=== PATIENT | female | born 1980 | race African-American/Black ===

== ENCOUNTER 2022-06-10 16:53 | Emergency (ER) | payer OTHER ==
[2022-06-10] MEDS ORDERED: Dexamethasone 10 MG/ML VIAL ONE (18:14)
== END 2022-06-10 18:25 | disposition home or self-care (01) ==
LOC: CSHERS 16:53
DX: J04.0 Acute laryngitis (principal)
CPT/HCPCS: 87081; 87430; 99283; J1100

== ENCOUNTER 2022-07-24 12:41 | Emergency (ER) | payer OTHER | END 2022-07-24 13:26 | disposition home or self-care (01) | LOC: CSHERS 12:41 | DX: R05.1 Acute cough (principal) | CPT/HCPCS: 99283 ==

== ENCOUNTER 2022-09-17 21:32 | Emergency (ER) | payer OTHER ==
[2022-09-17] MEDS ORDERED: Acetaminophen 500 MG TAB ONE (22:16)
[2022-09-17 22:56] LABS: SARS-CoV-2 NAA Rapid Test Not Detected (NotDetected)
== END 2022-09-17 23:10 | disposition home or self-care (01) ==
LOC: CSHERS 21:32
DX: J06.9 Acute upper respiratory infection, unspecified (principal); R11.2 Nausea with vomiting, unspecified; Z20.822 Contact with and (suspected) exposure to COVID-19
CPT/HCPCS: 99284

== ENCOUNTER 2022-11-25 17:15 | Emergency (ER) | payer OTHER ==
[2022-11-25] MEDS ORDERED: Ketorolac Tromethamine 30 MG/ML VIAL ONE (18:16)
== END 2022-11-25 18:15 | disposition home or self-care (01) ==
LOC: CSHERS 17:15
DX: S90.31XA Contusion of right foot, initial encounter (principal); W20.8XXA Other cause of strike by thrown, projected or falling object, initial encounter
CPT/HCPCS: 96372; 99283; J1885

== ENCOUNTER 2024-02-14 18:47 | Emergency (ER) | payer OTHER, SELFPAY ==
[2024-02-14] MEDS ORDERED: Ketorolac Tromethamine 30 MG (1 mL) VIAL ONE (19:45)
== END 2024-02-14 20:23 | disposition home or self-care (01) ==
LOC: CSHERS 18:47
DX: M54.31 Sciatica, right side (principal); I10 Essential (primary) hypertension
CPT/HCPCS: 96372; J1885

== ENCOUNTER 2025-05-31 16:58 | Emergency (ER) | payer SELFPAY ==
[2025-05-31] MEDS ORDERED: HYDROcodone/Acetaminophen 5/325 mg Tablet ONE (17:40)
== END 2025-05-31 19:14 | disposition home or self-care (01) ==
LOC: CSHERS 16:58
DX: M79.604 Pain in right leg (principal); M54.31 Sciatica, right side; I10 Essential (primary) hypertension

== ENCOUNTER 2025-07-06 11:29 | Emergency (ER) | payer SELFPAY ==
[2025-07-06] MEDS ORDERED: Dexamethasone 10 MG/ML VIAL ONE (13:24)
== END 2025-07-06 14:00 | disposition home or self-care (01) ==
LOC: CSHERS 11:29
DX: J02.9 Acute pharyngitis, unspecified (principal); I10 Essential (primary) hypertension
CPT/HCPCS: 87081; 87428; 87430; 96372; 99283; J1100

== ENCOUNTER 2025-09-11 14:51 | Emergency (ER) | payer SELFPAY ==
[2025-09-11] MEDS ORDERED: Ondansetron PF 4 MG/2 ML Vial ONE (15:54)
[2025-09-11 16:12] LABS: #Basophils 0.03 10x3/uL (0.0-0.2); #Eosinophils 0.10 10x3/uL (0.0-0.5); #Monocytes 0.39 10x3/uL (0.0-1.1); #Neutrophils 2.44 10x3/uL (1.5-8.4); %Basophils 0.6 % (0.0-2.0); %Eosinophils 2.0 % (0.0-6.0); %Lymphocytes 41.6 % (18.0-47.0); %Monocytes 7.6 % (0.0-10.0); %Neutrophils 47.8 % (40.0-75.0); Hematocrit 36.5 % (34.9-44.5); Hemoglobin 11.9 g/dL (12.0-15.5); Mean Corpuscular Hemoglobin 25.2 pg (27.0-33.0); Mean Corpuscular Volume 77.3 fL (81.6-98.3); Platelet Count 352 10x3/uL (150-450); Red Blood Cell (RBC) Count 4.72 10x6/uL (3.90-5.03); White Blood Cell (WBC) Count 5.10 10x3/uL (3.5-10.5)
[2025-09-11] MEDS ORDERED: Pantoprazole 80 MG, Admixture Fee 1 EACH in Sodium Chloride 0.9% 100 ML IVPB SCH (16:15)
[2025-09-11 16:20] LABS: BHCG - Serum Negative (NEGATIVE); Pregs Control Background? CLEAR/WHITE (CLR/WHITE); Pregs Control Bar Appear? YES (CONTROL BAR)
[2025-09-11 16:29] LABS: ALT (SGPT) 23 U/L (Less than 34); AST (SGOT) 21 U/L (11-34); Albumin 4.0 g/dL (3.1-4.5); Alkaline Phosphatase 58 U/L (40-110); Anion Gap 14 mmol/L (10-20); BUN (Urea Nitrogen) 14 mg/dL (7.0-18.7); Bilirubin, Total 0.2 mg/dL (0.3-1.2); Calc. Creatinine Clearance 0 mL/min (70-130); Calcium 9.6 mg/dL (7.8-10.44); Carbon Dioxide 23 mmol/L (22-29); Chloride 106 mmol/L (98-107); Globulin 3.8 g/dL (2.4-3.5); Glucose 84 mg/dL (70-105); Lipase 12 U/L (8-78); Potassium 4.0 mmol/L (3.5-5.1); Sodium 139 mmol/L (136-145)
== END 2025-09-11 17:52 | disposition home or self-care (01) ==
LOC: CSHERS 14:51
DX: K92.0 Hematemesis (principal); I10 Essential (primary) hypertension
CPT/HCPCS: 36415; 80053; 83690; 84703; 85025; 96365; 96375; J2405; J2470